=== PATIENT | male | born 1935 | race Caucasian/White ===

== ENCOUNTER 2019-12-25 17:39 | Emergency (ER) | payer MEDICARE, OTHER ==
[2019-12-25 18:10] LABS: ABSOLUTE EOSINOPHILS # (AUTO) 1.6 10^3/uL (0.0-0.6); ABSOLUTE LYMPHOCYTES (AUTO) 1.1 10^3/uL (0.5-4.7); ABSOLUTE MONOCYTES (AUTO) 0.4 10^3/uL (0.1-1.4); ABSOLUTE NEUT (AUTO) 3.2 10^3/uL (1.7-8.2); BASOPHILS % (AUTO) 0.6 % (0-2); EOSINOPHILS % (AUTO) 24.8 % (0-6); HEMOGLOBIN 10.8 g/dL (13.5-17.0); MEAN CORPUSCULAR HEMOGLOBIN 24.6 pg (27.0-33.4); MEAN CORPUSCULAR HGB CONC 32.7 g/dL (32.0-36.0); MEAN CORPUSCULAR VOLUME 75 fl (80-97); MONOCYTES % (AUTO) 6.6 % (3-13); PLATELET COUNT 204 10^3/uL (150-450); RED BLOOD COUNT 4.38 10^6/uL (4.35-5.55); TOTAL CELLS COUNTED % (AUTO) 100 %; WHITE BLOOD COUNT 6.4 10^3/uL (4.0-10.5)
--- NOTE | 2019-12-25 18:17 | RADIOLOGY REPORT (SQ) ---
EXAM DESCRIPTION: CHEST SINGLE VIEW IMAGES COMPLETED DATE/TIME: 12/25/2019 5:55 pm REASON FOR STUDY: chest pain COMPARISON: None. EXAM PARAMETERS: NUMBER OF VIEWS: One view. TECHNIQUE: Single frontal radiographic view of the chest acquired. RADIATION DOSE: NA LIMITATIONS: None. FINDINGS: LUNGS AND PLEURA: Hazy opacification the left base. The lateral aspect of the left hemidi aphragm is indistinct. MEDIASTINUM AND HILAR STRUCTURES: No masses. Contour normal. HEART AND VASCULAR STRUCTURES: Heart normal in size. Normal vasculature. BONES: No acute findings. HARDWARE: None in the chest. OTHER: No other significant finding. IMPRESSION: Cannot exclude very limited airspace disease in the left lower lobe, atelectasis versus pneumonia. TECHNICAL DOCUMENTATION: JOB ID: [id number] 2010 [employer]- All Rights Reserved Reading location - IP/workstation name: [email or web address]
[2019-12-25 18:30] LABS: ALBUMIN 3.7 g/dL (3.5-5.0); ALKALINE PHOSPHATASE 132 U/L (38-126); ANION GAP 7 (5-19); ASPARTATE AMINO TRANSFERASE 17 U/L (17-59); BILIRUBIN,TOTAL 1.2 mg/dL (0.2-1.3); BLOOD UREA NITROGEN 14 mg/dL (7-20); CALCIUM 8.9 mg/dL (8.4-10.2); CARBON DIOXIDE 25 mmol/L (22-30); CHLORIDE 103 mmol/L (98-107); CREATINE KINASE 37 U/L (55-170); GLUCOSE 98 mg/dL (75-110); POTASSIUM 4.1 mmol/L (3.6-5.0); TOTAL PROTEIN 6.4 g/dL (6.3-8.2)
--- NOTE | 2019-12-25 18:35 | ER Document Report ---
Entered by DELROY JACKSON SCRIBE 12/25/19 3570 Acting as scribe for:CALISTA ORTIZ MD ED Cardiac - General Stated Complaint: CHEST PAIN Time Seen by Provider: 12/25/19 17:55 Information source: Patient, Relative Notes: This 83 year old male patient presents to the emergency department today with complaints of chest pain which began one hour prior to arrival. Patient also complains of associated shortness of breath and abdominal pain. Patient is a somewhat poor historian so history is limited. Patient states he has a history of heart disease, but he is unable to say what kind. Denies cardiac cath, heart attack, or history of CHF. Patient says yes to having atrial fibrillation and he says this is the heart disease he has. A family member arrived who had originally gone to [facility] with take him there. She reports that he has been confused and acting like he does when he gets urinary tract infection. She reports the expressive aphasia we are seeing is common when he gets urinary tract infection. He did have a TURP on 12/12/2019, saw his urologist this past Sunday on 12/22/2019. He does get UTI with a drug-resistant bacteria, I suspect it is a ESBL E. coli as it has been treated with Cipro and Macrodantin in the past. Eliquis was stopped 4 months ago due to GI bleed. He is currently being evaluated for the Watchman device. - Related Data Allergies/Adverse Reactions: niacin Allergy (Verified 12/25/19 20:30) Past Medical History - General Information source: Patient, Relative - Social History Smoking Status: Former Smoker Cigarette use (# per day): No Chew tobacco use (# tins/day): No Smoking Education Provided: No Frequency of alcohol use: None Drug Abuse: None Lives with: Family Family History: Reviewed & Not Pertinent - Past Medical History Cardiac Medical History: Reports: Hx Atrial Fibrillation, Hx Hypercholesterolemia, Hx Hypertension Pulmonary Medical History: Reports: Hx COPD Neurological Medical History: Reports: Other - Developed confusion and expressive aphasia with urinary tract infections Endocrine Medical History: Reports: Hx Diabetes Mellitus Type 2 Renal/ Medical History: Reports: Hx Benign Prostatic Hyperplasia Malignancy Medical History: Reports Hx Lung Cancer GI Medical History: Reports: 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 Review of Systems - Review of Systems Constitutional: No symptoms reported EENT: No symptoms reported Cardiovascular: See HPI, Chest pain Respiratory: See HPI, Short of breath Gastrointestinal: See HPI, Abdominal pain Genitourinary: Hematuria - Recent TURP Musculoskeletal: No symptoms reported Skin: No symptoms reported Hematologic/Lymphatic: No symptoms reported Neurological/Psychological: Confusion -: Yes All other systems reviewed and negative Physical Exam - Notes Notes: Physical Exam: General: Alert, appears well. Stuttered speech, seems as if hes having difficulty thinking what he wants to say but if you suggest words he says yes or no, states he has never had a heart cath, congestive heart failure, or heart attack. He reports he has CAD but can't say what kind, says yes to having a. fib. HEENT: Normocephalic. Atraumatic. PERRL. Extraocular movements intact. Orophary nx clear. Neck: Supple. Non-tender. Respiratory: No respiratory distress. Wheezing and rhonchi bilaterally with forced cough. No chest wall tenderness with palpation. Cardiovascular: Irregularly irregular with a systolic murmur. Abdominal: Soft, diffuse mild tenderness with palpation. No distension. Normal Bowel Sounds. Back: No gross abnormalities. Extremities: Moves all four extremities. Upper extremities: Normal inspection. Normal ROM. Lower extremities: Chronic discoloration of legs, feet, and ankles. 1+ pitting edema bilaterally. Neurological: Normal cognition. AAOx4. Psychological: Normal affect. Normal Mood. Skin: Warm. Dry. Normal color. Course - Re-evaluation Re-evalutation: 12/25/19 21:05 The patient's family member arrived and reports that expressive aphasia and other symptoms I am seeing are common with the patient when he gets urinary tract infection. He does grow a drug-resistant bacteria in his urine that has been treated with Macrodantin and with Cipro. I suspect it is a E. coli ESBL. The patient had a TURP on 12/12/2019. He saw his urologist on 12/22/2019 and as far she knows there was no problem with the urine at that time. - Laboratory Result Diagrams: 12/25/19 17:47 12/25/19 17:47 Laboratory results interpreted by me: 12/25/19 12/25/19 12/25/19 17:47 17:47 18:12 Hgb 10.8 L Hct 33.0 L MCV 75 L MCH 24.6 L RDW 19.0 H Eos % (Auto) 24.8 H Absolute Eos (auto) 1.6 H Sodium 135.0 L Alkaline Phosphatase 132 H Creatine Kinase 37 L Urine Protein 100 H Urine Ketones 20 H Urine Blood LARGE H Ur Leukocyte Esterase MODERATE H Urine Ascorbic Acid 20 H - EKG Interpretation by Me EKG shows normal: [place], Intervals, QRS Complexes. abnormal: ST-T Waves - Nonspecific lateral T abnormalities Rate: Normal - 71 Rhythm: A.Fib, PVC's [place]/QRS: Left axis deviation Discharge - Discharge Clinical Impression: Urinary tract infection Qualifiers: Urinary tract infection type: acute cystitis Hematuria presence: with hematuria Qualified Code(s): N30.01 - Acute cystitis with hematuria Altered mental status Qualifiers: Altered mental status type: unspecified Qualified Code(s): R41.82 - Altered mental status, unspecified Condition: Stable Disposition: HOME, SELF-CARE Additional Instructions: Urinary Tract Infection Your evaluation indicates that you have a urinary tract infection. This is due to germs growing in the bladder. This is a common problem. This infection usually responds quickly to antibiotics. Your antibiotic should be taken exactly as prescribed. Drink plenty of fluids -- three to four quarts a day. Occasionally, a bladder anesthetic will be prescribed to help stop the feeling of urgency until the antibiotic has a chance to clear the infection. This may cause your urine to be dark orange. Certain urine infections require a culture. If the doctor obtained a culture, the results will be back in two days. You should call to see if a change in treatment is needed. A repeat urinalysis after you finish treatment is often recommended. The physician will let you know if further testing is required. Call the doctor if you develop fever, chills, flank pain, inability to urinate, or blood in the urine. Take the medications as prescribed. Drink plenty of fluids. Follow-up with your urologist either tomorrow or Sunday for recheck. RETURN TO THE EMERGENCY ROOM IF ANY NEW OR WORSENING SYMPTOMS. Prescriptions: Ciprofloxacin HCl [Cipro 500 mg Tablet] 500 mg PO BID #10 tablet I personally performed the services described in the documentation, reviewed and edited the documentation which was dictated to the scribe in my presence, and it accurately records my words and actions.
[2019-12-25 18:39] LABS: INTERNATIONAL RATION (INR) 1.09; PROTHROMBIN TIME 14.1 SEC (11.4-15.4)
[2019-12-25 18:40] LABS: CREATINE KINASE MB 1.72 ng/mL (<4.55); TROPONIN I 0.028 ng/mL
[2019-12-25 19:22] LABS: APPEARANCE,URINE CLOUDY; BILIRUBIN,URINE NEGATIVE (NEGATIVE); COLOR,URINE AMBER; GLUCOSE, URINE NEGATIVE (NEGATIVE); KETONES,URINE 20 mg/dL (NEGATIVE); LEUKOCYTE ESTERASE,URINE MODERATE (NEGATIVE); NITRITE,URINE NEGATIVE (NEGATIVE); PROTEIN,URINE 100 mg/dL (NEGATIVE); UROBILINOGEN,URINE NEGATIVE mg/dL (<2.0)
[2019-12-25] MEDS ORDERED: LEVOFLOXACIN 750 MG/D5W RTU 750 MG/150 ML RTUPB IV ONE (21:03)
[2019-12-25 23:21] VITALS: BP 147/74
--- NOTE | 2019-12-26 01:16 | EKG REPORT ---
SEVERITY:- ABNORMAL ECG - ATRIAL FIBRILLATION, V-RATE 58-83 VENT PREMATURE COMPLEXES BORDERLINE LEFT AXIS DEVIATION BORDERLINE R WAVE PROGRESSION, ANTERIOR LEADS NONSPECIFIC T ABNORMALITIES, LATERAL LEADS : Confirmed by: Mary Polo 26-Dec-2019 01:16:14
== END 2019-12-25 23:21 | disposition home or self-care (01) ==
LOC: EDBD → ER 17:39
DX: N30.01 Acute cystitis with hematuria (principal); R47.01 Aphasia; R07.9 Chest pain, unspecified; J44.9 Chronic obstructive pulmonary disease, unspecified; I48.91 Unspecified atrial fibrillation; I49.3 Ventricular premature depolarization; R06.02 Shortness of breath; R41.0 Disorientation, unspecified; R10.9 Unspecified abdominal pain; I10 Essential (primary) hypertension; E11.9 Type 2 diabetes mellitus without complications; Z98.890 Other specified postprocedural states; Z88.8 Allergy status to other drugs, medicaments and biological substances; Z87.891 Personal history of nicotine dependence
CPT/HCPCS: 93005; 99285; 96365; 96366; 36415; 87086; 82553; 82550; 83690; 85025; 85610; 80053; 81001; 84484; 71045; 93010; J1956